=== PATIENT | female | born 1955 | race Caucasian/White ===

== ENCOUNTER 2023-08-25 06:23 | Day surgery (SDC) | payer OTHER, SELFPAY ==
[2023-08-21 09:30] VITALS: BMI 26.3
[2023-08-21 10:11] LABS: Hematocrit 43.5 % (37.0-47.0); Hemoglobin 14.8 g/dL (12.0-16.0); Mean Corpuscular Hgb 29.1 pg (27.0-31.0); Mean Corpuscular Volume 85.5 fL (81.0-99.0); Mean Platelet Volume 9.3 fL (7.4-10.4); Platelet Count 354 10^3/uL (130-400); Red Blood Cell Count 5.09 10^6/uL (4.20-5.40); White Blood Cell Count 9.3 10^3/uL (4.8-10.8)
[2023-08-21 10:27] LABS: Blood Urea Nitrogen 15 mg/dl (7-17); Calcium 10.1 mg/dl (8.4-10.2); Carbon Dioxide 25 mmol/L (22-30); Chloride 101 mmol/L (98-107); Estimated Creatinine Clearance 67 ml/min; Glucose 89 mg/dl (70-99); Potassium 4.4 mmol/L (3.5-5.1); Sodium 138 mmol/L (135-145); eGFR > 60.00
[2023-08-25] VITALS (20 sets, daily range): BP systolic 108–134; BP diastolic 56–78; BMI 26.3
[2023-08-25] MEDS: NORMOSOL-R 1000 IV ×2 (12:00→20:30)
[2023-08-25] MEDS: Pyridium 200 MG PO (13:31)
[2023-08-25] MEDS: HEPARIN 5000 UNITS SC (13:32)
[2023-08-25] MEDS: FLAGYL 500 MG 100 IV (14:05)
[2023-08-25] MEDS: ZOFRAN 4 MG IV ×2 (17:42→23:36)
[2023-08-25] MEDS: TORADOL 15 MG IV (20:29)
[2023-08-25] MEDS: COMPAZINE 5 MG IV (20:56)
--- NOTE | 2023-08-25 22:43 | PTCARENOTE ---
Received patient from PACU via bed; Medsurg orders. VSS afebrile, HR 89, RR 14, BP 128/66 , pox 98% 3LNC, no c/o pain.
Pt c/o nausea. [employer] administered 5mg Compazine prior to transfer.
x2 puncture sites above pubis, draining scant- small blood. Peripad in place.
Cunningham catheter draining yellow urine d/t be removed in AM.
[2023-08-25] MEDS: COLACE PO (22:45)
[2023-08-25] MEDS: MYLICON 80 MG PO (23:36)
[2023-08-26 00:20] VITALS: BP 128/69
[2023-08-26] MEDS: TORADOL IV ×3 (02:25→07:37)
[2023-08-26 03:20] VITALS: BP 122/67
[2023-08-26] MEDS: NORMOSOL-R 1000 IV ×2 (04:37→10:44)
[2023-08-26 05:39] LABS: Hematocrit 36.8 % (37.0-47.0); Hemoglobin 13.1 g/dL (12.0-16.0); Mean Corp Hgb Conc. 35.6 g/dL (33.0-37.0); Mean Corpuscular Hgb 29.6 pg (27.0-31.0); Mean Corpuscular Volume 83.1 fL (81.0-99.0); Mean Platelet Volume 9.4 fL (7.4-10.4); Platelet Count 300 10^3/uL (130-400); Red Blood Cell Count 4.43 10^6/uL (4.20-5.40); Red Cell Dist. Width 12.7 % (11.5-14.5); White Blood Cell Count 10.6 10^3/uL (4.8-10.8)
[2023-08-26 06:09] LABS: Blood Urea Nitrogen 9 mg/dl (7-17); Carbon Dioxide 23 mmol/L (22-30); Chloride 105 mmol/L (98-107); Estimated Creatinine Clearance 78 ml/min; Potassium 3.7 mmol/L (3.5-5.1); Sodium 135 mmol/L (135-145)
[2023-08-26 07:35] VITALS: BP 115/75
[2023-08-26] MEDS: COLACE 100 MG PO (07:36)
--- NOTE | 2023-08-26 07:58 | W.PN.GYN ---
Today's Communication / Plan
-
1. voiding trial
2. d/c home
Physician Note
-
Assessment and Plan:
68 yo woman POD 1 s/p robotic supracervical hysterecotmy, LSO, sacrocolpopexy, posterior colporrhaphy with perineoplasty, retropubic midurethral sling and cystoscopy: patient meeting postoperative milestones.
1. Postoperative care
-hep lock IV
-regular diet
-dvt ppx: lovenox, scds, ambulation
-cbc: wnl
-bmp: wnl
-uop adequate
-po pain medications
2. Dispo
-d/c home today
Subjective:
No aucte complaints, pain well controlled, toelrating diet, minimal vaginal bleeding. denies fevers/chills, nausea/vomiting, chest pain, sob, leg pain
Objective:
Intake and Output
08/24/23 08/25/23 08/26/23 08/27/23
06:59 06:59 06:59 06:59
Intake Total 2069
Output Total 6851 / 6851
Balance -4781 / -4781
Intake:
Oral fluids 120 / 120
IV fluids (Total) 1950 / 1950
Normosl 700 / 700
Output:
Urine, Cunningham 6851 / 6851
Vital Signs
Temp Pulse Resp BP Pulse Ox
98.6 F 89 16 122/67 95
08/26/23 03:20 08/26/23 03:20 08/26/23 03:20 08/26/23 03:20 08/26/23 03:20
Lab Results
08/26/23 04:59
08/26/23 04:59
Exam:
Abdomen: soft, nontender, non-distended
Incisions, clean, dry, intact
--- NOTE | 2023-08-26 09:58 | CM ---
Reviewed the chart notes and spoke with the patient at the bedside. The patient resides with her spouse in a two story home with no steps to enter. The patient reports no DME/VN/SNF in the past. The patient confirmed her pharmacy of choice is
the [facility]. The patient anticipates being discharged to home today with no anticipated needs. Per patient, her sister will provide transportation. CM continues to be available to patient/family and is monitoring medical plan for
needs at discharge.
Plan: Discharge to home when medically stable.
[2023-08-26 11:19] VITALS: BP 142/86
[2023-08-26 12:44] VITALS: BP 125/77
== END 2023-08-26 14:07 | disposition home or self-care (01) ==
LOC: SDS 06:23
PROVIDERS: ATTENDING PHYSICIAN Obstetrics & Gynecology; FAMILY PHYSICIAN Family Medicine
DX: N81.2 Incomplete uterovaginal prolapse (principal); N95.2 Postmenopausal atrophic vaginitis; N39.3 Stress incontinence (female) (male)
CPT/HCPCS: 57425; 58542; 57288; 57250; 88305; 36415; 80048; 80051; 82565; 84520; 85027; 86850; 86900; 86901; 93005; C1763; C1771